=== PATIENT | female | born 2000 | race Two or more races ===

== ENCOUNTER 2024-09-07 11:25 | Observation (INO) | payer MEDICAID, SELFPAY ==
[2024-09-07 11:42] VITALS: BP 116/69; PULSE 93
[2024-09-07 11:50] VITALS: BMI 30.1
[2024-09-07 12:28] VITALS: BP 110/74; PULSE 86
[2024-09-07 12:44] LABS: Collection Type, Urine Clean Catch
[2024-09-07 12:58] VITALS: BP 107/69; PULSE 81
[2024-09-07 13:00] LABS: Bacteria,Urine 1+; Bilirubin,Urine Negative (Negative); Blood,Urine 3+ (Negative); Color,Urine Yellow (Lt Yel-Yel); Glucose, Urine Negative (Negative); Ketones,Urine Negative (Negative); Leukocyte Esterase,Urine Positive (Negative); Nitrite,Urine Positive (Negative); PH,Urine 6.5 (5.0-7.0); Protein,Urine Negative (Neg - Trace); RBC,Urine 37 /hpf (0-3); Specific Gravity,Urine 1.011 (1.001-1.035); Squamous Epithelial Cell,Urine 6 /hpf (0-5); WBC,Urine 47 /hpf (0-5)
[2024-09-07 13:11] LABS: Clarity,Urine Hazy (Clear/Hazy)
--- NOTE | 2024-09-07 13:25 | PC.NURSE ---
09/07/2024 @ 7488 PRESCRIPTION ORDERS FOR KEFLEX 500 MG PO BID X7 DAYS VIA TELEPHONE CALLED TO PATIENT'S PREFERRED PHARMACY [facility] IN [place].
[2024-09-07] MEDS: cephALEXin 250 MG CAPSULE 500 MG PO (13:36)
== END 2024-09-07 13:45 | disposition home or self-care (01) ==
PROVIDERS: Admitting Provider Obstetrics & Gynecology; Visit Provider Obstetrics & Gynecology
DX: O46.93 Antepartum hemorrhage, unspecified, third trimester (principal); Z3A.35 35 weeks gestation of pregnancy
CPT/HCPCS: 59025; 59899; 81001; A9270

== ENCOUNTER 2024-09-26 15:57 | Outpatient (CLI) | payer MEDICAID, SELFPAY ==
[2024-09-26] VITALS (7 sets, daily range): BP systolic 112; BP diastolic 67; PULSE 86–92; RESP 18–97; TEMP 37; O2SAT 97–98; BMI 31.1
--- NOTE | 2024-09-26 16:25 | XR_ITS ---
Examination: Biophysical profile, ultrasound Date and time of exam: September 26, 2024 1636 hrs. Indications: Diagnosis cholestasis of Technique: Multiple transabdominal sonographic images of the pelvis abdomen obtained. Attention is directed to the breathing movement, gross body movement, amniotic fluid volume and tone. Findings: Amniotic fluid index 9.9 cm Total biophysical profile is 8 of 8. breathing movement is 2. Gross body movement is 2. tone is 2. Qualitative amniotic fluid volume is 2 Impression: Biophysical profile is 8 of 8.
--- NOTE | 2024-09-26 17:04 | PC.NURSE ---
Patient discharged home with self. Vitals WNL, NST reactive, BPP 04/29. Discharge instructions reviewed with patient including labor signs, precautions and reasons to return to hospital. Patient instructed to follow up with hospital for labor induction, tentatively scheduled for 09/27/24 and or follow up with OB at next scheduled appt on 09/29/24. Patient verbalizes understanding, all questions answered and encouraged.
== END 2024-09-26 17:05 | disposition home or self-care (01) ==
LOC: CNST 15:59 → S4SX 16:00
PROVIDERS: Referring Provider Nurse Practitioner Women's Health; Visit Provider Nurse Practitioner Women's Health
DX: Z34.83 Encounter for supervision of other normal pregnancy, third trimester (principal); Z36.9 Encounter for antenatal screening, unspecified; Z3A.38 38 weeks gestation of pregnancy
CPT/HCPCS: 59025; 76819

== ENCOUNTER 2024-09-28 12:57 | Outpatient (CLI) | payer MEDICAID, SELFPAY ==
[2024-09-28] VITALS (8 sets, daily range): BP systolic 108; BP diastolic 62; PULSE 81–92; RESP 18–99; TEMP 36.9; O2SAT 96–98; BMI 30.7
--- NOTE | 2024-09-28 13:00 | XR_ITS ---
Examination: Biophysical profile, ultrasound Date and time of exam: September 28, 2024 1303 hours INDICATIONS: Diagnosis cholestasis of , secondary diagnoses preinduction, unknown presentation Technique: Multiple transabdominal sonographic images of the pelvis abdomen obtained. Attention is directed to the breathing movement, gross body movement, amniotic fluid volume and tone. Findings: Amniotic fluid index 11.5 cm Total biophysical profile is 8 of 8. breathing movement is 2. Gross body movement is 2. tone is 2. Qualitative amniotic fluid volume is 2 Impression: Biophysical profile is 8 of 8.
== END 2024-09-28 13:55 | disposition home or self-care (01) ==
LOC: S4S1 12:58 → S4SX 12:58
PROVIDERS: Referring Provider Nurse Practitioner Women's Health; Visit Provider Nurse Practitioner Women's Health
DX: O26.643 Intrahepatic cholestasis of pregnancy, third trimester (principal); K83.1 Obstruction of bile duct; Z3A.38 38 weeks gestation of pregnancy
CPT/HCPCS: 76819

== ENCOUNTER 2024-10-01 21:00 | Inpatient (IN) | payer MEDICAID, SELFPAY ==
[2024-10-01] VITALS (32 sets, daily range): BP systolic 115; BP diastolic 70; PULSE 79–105; O2SAT 89–99; BMI 31.7
--- NOTE | 2024-10-01 22:47 | ESHP_ITS ---
Documentation for date of: 10/01/24 OB Labor/Induct. HPI History of Present Illness : 2 Term pregnancies: 1 pregnancies: 0 Living children: 1 History of Abortions: Spontaneous and Elective: 0 History of sections: No History of : No History of present illness: 24 yo at 39+2 presents for IOL for cholestasis. notable for 1) Cholestasis with elevated BA and abnormal LFT, last BA 7.9 No OB concerns. No contractions, LOF, VB. Normal movement. History of Present Adequate Care: No Labs Narrative: PNL scanned into chart Notable for Rh positive HIV negative HepBsAg negative GBS negative Review of Systems Review of Systems Narrative Review of Systems: negative Past Medical History Surgical History SURGICAL: Negative Section Past Medical History Comments PMH COMMENT: No past medical history of surgical history Meds Home Medications and Allergies Home Medications ?Medication ?Instructions ?Recorded ?Confirmed ?Type vitamin-ferrous fumarate 1 tab PO QDAY 07/03/21 10/01/24 History 28 mg iron-folic acid 800 mcg tablet ( Tablet) ursodiol 300 mg capsule 300 mg PO QDAY 09/07/24 10/01/24 History Allergies Allergy/AdvReac Type Severity Reaction Status Date / Time No Known Allergies Allergy Verified 10/01/24 21:23 OB Exam Physical Exam Vital signs: Pulse BP Pulse Ox 79 115/70 99 10/01/24 21:28 10/01/24 21:28 10/01/24 22:44 Narrative: GEN: NAD RESP normal work of breathing ABD gravid non tender SVE: closed/long/high FHT: Reactive, no decelerations [place]: irregular OB Assessment & Plan Assessment and Plan (1) Normal labor and delivery: Status: Acute Assessment and plan: Admit for IOL at 39+2 for cholestasis - Start routine induction, likely with misoprostol for cervical ripening - Cholestasis: repeat LFTs on admission, continue Actigall for symptomatic relief - FWB: continuous monitoring for cholestasis, complete US ordered - GBS negative - PPH risk: low Tanna Wright MD
[2024-10-01 23:04] LABS: Basophils % (Auto) 0 % (0-2.5); Eosinophils # (Auto) 0.1 Thou/mm3 (0.0-0.5); Eosinophils % (Auto) 1 % (0-10); Hematocrit 35.9 % (36.0-46.0); Hemoglobin 12.4 g/dL (12.0-16.0); Immature Granulocytes % (Auto) 0 % (0-0); Immature Granulocytes Auto 0.04 Thou/mm3 (0.00-0.00); Lymphocytes # (Auto) 1.8 Thou/mm3 (1.0-4.8); Lymphocytes % (Auto) 19 % (10-50); Mean Corpuscular HGB Conc 34.5 g/dl (31.0-37.0); Mean Corpuscular Hemoglobin 30.4 pg (25.0-35.0); Mean Corpuscular Volume 88 fL (80-100); Monocytes # (Auto) 0.4 Thou/mm3 (0.0-0.8); Monocytes % (Auto) 5 % (0-12); Neutrophils # (Auto) 7.2 Thou/mm3 (1.8-7.7); Neutrophils % (Auto) 76 % (37-80); Nucleated Red Blood Cell % 0 /100 WBC (0); Platelet Count 185 Thou/mm3 (140-440); RDW Standard Deviation 43.7 fL (36.4-46.3); Red Blood Count 4.08 Miln/mm3 (4.00-5.20); White Blood Count 9.6 Thou/mm3 (3.6-11.0)
[2024-10-01 23:26] LABS: Alanine Aminotransferase 27 U/L (10-49); Albumin, Serum 4.2 gm/dL (3.5-5.0); Albumin/Globulin Ratio 1.6 (1.2-2.2); Alkaline Phosphatase 265 U/L (46-116); Anion Gap 13 (7-16); Aspartate Amino Transferase 36 U/L (0-34); BUN/Creatinine Ratio 10 Ratio (12-20); Bilirubin,Total 0.3 mg/dL (0.3-1.2); Blood Urea Nitrogen 8 mg/dL (9-23); Calcium 9.9 mg/dL (8.3-10.6); Calcium (Corrected) 9.9 mg/dL (8.5-10.1); Carbon Dioxide 22.1 mMol/L (20.0-31.0); Chloride 106 mMol/L (98-107); Creatinine (Component) 0.8 mg/dL (0.6-1.3); Globulin 2.7 gm/dL (2.3-3.5); Glucose 87 mg/dL (74-106); Osmolality,Calculated 278 (275-295); Potassium 3.8 mMol/L (3.4-5.1); Sodium 141 mMol/L (136-145); Total Protein 6.9 gm/dL (5.7-8.2); eGFR > 60 See Note
[2024-10-02] VITALS (114 sets, daily range): BP systolic 93–121; BP diastolic 54–75; PULSE 64–97; RESP 16–17; TEMP 36.6–36.8; O2SAT 92–99
--- NOTE | 2024-10-02 | XR_ITS ---
Examination: Complete OB ultrasound greater than 14 weeks Date and time of exam: October 02, 2024 0015 hrs. Indications: Labor evaluation, induction today, diagnosis cholestasis of , unknown presentation Findings: Viable intrauterine single fetus with single amniotic sac presentation cephalic spine maternal right Cardiac motion 155 BPM Placenta anterior grade 3 Umbilical cord insertion seen Amniotic fluid index 14 cm Cervix 2.7 cm Ovaries obscured by bowel gas. Composite estimated gestational age based on BPD, head circumference, abdominal circumference, femur length is 37 weeks 1 day Estimated weight 3089 g. Survey of intracranial anatomy, spinal anatomy, abdominal anatomy, four-chamber heart performed with no abnormalities identified. Impression: Viable intrauterine gestation cephalic presentation Estimated gestational age 37 weeks 1 day Estimated weight 3089 g.
[2024-10-02 01:00] LABS: Syphilis Nonreactive (Nonreactive)
[2024-10-02] MEDS: ursodioL 300 MG CAPSULE PO ×3 (01:21→18:29)
--- NOTE | 2024-10-02 01:53 | PRELIM_ITS ---
Obstetric ultrasound. October 02, 2024 at 0015 hours Clinical history: Induction.No prior study is av ailable for comparison.Findings:There is a gravid uterus with a live fetus in cephalic presentation, spine to the maternal right, of mean gestational age 37 weeks and 1 day. cardiac activity is pr esent at a heart rate of 155 beats per minute. The placenta is anterior in location, maturity grade 3 . There is no evidence of placenta previa or retroplacental hemorrhage. Amniotic fluid index is 14 cm . Estimated weight is 3089 grams+/- 457 grams. The cervical length measures 2.7 cm without fun neling. The ovaries are not visualized.Impression:Gravid uterus with a single live fetus in cephalic presentation of mean gestational age 37 weeks and 1 day. Report Electronically Signed By: Polo ham 10/02/2024 1:52:47 AM [EST]
[2024-10-02] MEDS: MISOPROSTOL 50 mCg TABLET PO ×4 (02:33→18:56)
[2024-10-02 04:57] LABS: Amphetamine/Methamp Scrn,U Negative (Negative); Barbiturate Screen,Urine Negative (Negative); Benzodiazepines Screen,Urine Negative (Negative); Benzoylecgonine Screen, Ur Negative (Negative); Fentanyl Screen,Urine Negative (Negative); Opiate Screen,Urine Negative (Negative); THC Screen,Urine Negative (Negative)
[2024-10-02] MEDS: RINGERS LACTATED 1000 ML 1,000 ML 100 ML IV (06:47)
[2024-10-02] MEDS: fentaNYL CIT INJ 50 mCg/ML AMP 2ML IVP (08:58)
--- NOTE | 2024-10-02 09:33 | PD.LDPN ---
Documentation for date of: 10/02/24 OB Labor Progress Note Assessment and Plan Comments: 24 yo undergoing IOL for cholestasis at 39+3 - s/p misoprostol, attempted FB but cervix posterior, continue cervical ripening - FWB: continuous monitoring, Cat 1, EFW 3089 grams+/- 457 grams - Cholestasis: ASt: 36 (last 18) ALT 27 (last 29), continue Actigall for symptomatic relief - PPH risk low - Anticipate
[2024-10-03] MEDS: DINOPROSTONE 10 MG VAG.SUPP VAGINAL (01:30)
[2024-10-03] MEDS: ursodioL 300 MG CAPSULE PO ×3 (05:56→21:55)
[2024-10-03 07:10] VITALS: RESP 16; TEMP 36.8
[2024-10-03 07:18] VITALS: BP 108/63; PULSE 71
--- NOTE | 2024-10-03 10:40 | PD.LDPPPRG ---
Subjective Subjective Interval history: feeling some intermittent contractions Exam Vital Signs Temp Pulse Resp BP Pulse Ox 98.3 F 71 16 108/63 96 10/03/24 07:10 10/03/24 07:18 10/03/24 07:10 10/03/24 07:18 10/02/24 07:09 Objective Labs 10/01/24 21:40 10/01/24 21:40 Assessment & Plan Problem List (1) Normal labor and delivery: Status: Acute Plan Comment Plan Comment: 24 yo undergoing IOL for cholestasis at 39+5. IOL day #2 (started 10/01) - s/p misoprostol, attempted FB (10/02) but cervix posterior, continue cervical ripening. Currently with cervidil in place. discussed next step of either FB or vaginal misoprostol is she is not ready for pitocin. - FWB: continuous monitoring, Cat 1, EFW 3089 grams+/- 457 grams. - Cholestasis: ASt: 36 (last 18) ALT 27 (last 29), continue Actigall for symptomatic relief - PPH risk low - Anticipate Time Spent With Patient Time: Total time spent is greater than 50% in coordination of care (as documented) at patient's floor/unit and/or counseling patient:
[2024-10-03 12:17] VITALS: BP 118/79; PULSE 105
[2024-10-03] MEDS: MISOPROSTOL 50 mCg TABLET PO ×3 (14:30→22:23)
[2024-10-03 17:03] VITALS: BP 121/78; PULSE 82
[2024-10-03] MEDS: fentaNYL CIT INJ 50 mCg/ML AMP 2ML 25 MCG IV (18:39)
[2024-10-03 20:21] VITALS: BP 100/62; PULSE 77
[2024-10-03 21:33] VITALS: BP 119/74; PULSE 73
[2024-10-04] VITALS (122 sets, daily range): BP systolic 93–143; BP diastolic 50–81; PULSE 55–103; RESP 18; TEMP 36.6–37.1; O2SAT 72–100
[2024-10-04] MEDS: MISOPROSTOL 50 mCg TABLET PO (02:20)
[2024-10-04] MEDS: ursodioL 300 MG CAPSULE PO (05:55)
--- NOTE | 2024-10-04 08:55 | PD.LDPN ---
Documentation for date of: 10/04/24 OB Labor Progress Note Pain Control Pain control: other (Requesting an epidural) Pelvic Exam Dilation (cm): 4 Effacement (%): 80 station: -2 Amniotic membrane status: Ruptured (AROM- clear) Contractions Monitor mode: External Contraction frequency: 2-4 Contraction duration: 40-60 Contraction phase: Contraction Contraction intensity: Moderate Status status: Category l Assessment and Plan Assessment: induction ongoing Plan OB labor note: begin Pitocin augmentation Comments: AROM - performed- clear fluids Start pitocin per protocol Updated Dr. Alcazar Anticipate
[2024-10-04] MEDS: RINGERS LACTATED 1000 ML 1,000 ML 100 ML IV ×3 (09:04→14:27)
[2024-10-04] MEDS: MINERAL OIL 30 ML UDC TOP (15:45)
[2024-10-04] MEDS: BENZO/LANO/ALOE (Dermoplast) 60 GM CAN 1 SPRAY TOP (16:00)
[2024-10-04] MEDS: OXYTOCIN in NS 20 units 20 UNIT/1,000 ML BAG 125 UNIT IV (16:00)
[2024-10-04] MEDS: TRANEXAMIC ACID 1,000 MG IVPB 1,000 MG/100 ML BAG 200 MG IV ×2 (16:10→17:36)
--- NOTE | 2024-10-04 16:17 | PD.LDDELS ---
Data ([facility]) Data Hx Section: No Maternal Blood Type: O Pos Rubella Titre: Positive RPR: Non-reactive Labs: Negative: RPR, Hepatitis B, HIV, Chlamydia, Gonorrhea and Group Beta Strep and Unknown: Herpes Type 1 and Herpes Type 2 : 2 Para: 1 Term: 1 : 0 Livin : 0 Delivery Data ([facility]) Labor Data Stimulated/Augmented: No Induction: Yes Method: Cervical Ripening Balloon (Cervidil, cytotec x2 ) ROM Date: 10/04/24 ROM Time: 08:50 Rupture Type: AROM Amniotic Fluid: Clear Delivery Data EDC: 10/06/24 EDC calculated by:: LMP/early US confirmation Labor Onset Stage 1 Date: 10/04/24 Labor Onset Stage 1 Time: 15:13 Labor Onset Stage 2 Date: 10/04/24 Labor Onset Stage 2 Time: 15:40 Delivery Date: 10/04/24 Delivery Time: 15:54 Gestational age (weeks): 39 Gestational age (days): 5 Placenta Delivery Date: 10/04/24 Placenta Delivery Time: 16:01 Delivered by: Susanna Ruiz Delivery nurse: Lori Hubbard Ground Source Heat Pump Technician at delivery: No Support person(s) at delivery: FOB Other staff at delivery: Nursery Nurse Other staff at delivery: Juliana Regalado Delivery Method Delivery: Vaginal Delivery Type: Spontaneous Presentation: Vertex Position: OA Anesthesia Type Primary Anesthesia: Epidural Secondary Anesthesia: None Delivery Room Medications Other Intrapartum Medications: No Post Delivery Medications N/A: No Placenta Placenta Delivery: Spontaneous Placenta Cultures Obtained: No Placenta Sent for Examination: No Episiotomy Episiotomy: None Lacerations #1: Perineal: 1st degree Labial: Right labial and right sulcus Perineal repair Sutures used for repair: 3.0 Vicryl (CT x2) EBL Estimated blood loss (ml): 300 Umbilical Cord Umbilical Vessels: 3 Nuchal Cord: Not Applicable Body Cord: Not Applicable Additional Procedures After pushing for half an hour patient had an of a viable male infant. Infant's anterior shoulder delivered with gentle downward traction subsequent deliver the posterior shoulder and the body without complications. placed on mother's abdomen. Vigorous cry upon delivery. Cord was clamped. Cut by FOB. Cord blood obtained. Three-vessel cord noted. Placenta expelled spontaneously and intact. Patient sustained a right labial laceration and a right sulcus laceration along with a first-degree perineal laceration all repaired using a 3-[address] suture x 2. Excellent hemostasis achieved after vigorous fundal massage and removal of clots from the posterior fornix. Patient was given TXA x 2. And IV Pitocin. EBL 300. Sponge and needle count correct. Mother and baby stable, skin to skin and bonding in LDR. [place] Data ([facility]) Data Infant Gender: Male Weight Grams: 3650 1 Minute Total: 8 5 Minute Total: 9
[2024-10-04 22:25] LABS: Basophils # (Auto) 0.1 Thou/mm3 (0.0-0.2); Basophils % (Auto) 0 % (0-2.5); Eosinophils % (Auto) 0 % (0-10); Hematocrit 31.4 % (36.0-46.0); Hemoglobin 10.7 g/dL (12.0-16.0); Immature Granulocytes % (Auto) 0 % (0-0); Immature Granulocytes Auto 0.04 Thou/mm3 (0.00-0.00); Lymphocytes # (Auto) 1.6 Thou/mm3 (1.0-4.8); Lymphocytes % (Auto) 10 % (10-50); Mean Corpuscular HGB Conc 34.1 g/dl (31.0-37.0); Mean Corpuscular Hemoglobin 30.7 pg (25.0-35.0); Mean Corpuscular Volume 90 fL (80-100); Monocytes # (Auto) 0.7 Thou/mm3 (0.0-0.8); Monocytes % (Auto) 5 % (0-12); Neutrophils # (Auto) 12.7 Thou/mm3 (1.8-7.7); Neutrophils % (Auto) 84 % (37-80); Nucleated Red Blood Cell % 0 /100 WBC (0); Platelet Count 151 Thou/mm3 (140-440); RDW Standard Deviation 45.9 fL (36.4-46.3); Red Blood Count 3.48 Miln/mm3 (4.00-5.20); White Blood Count 15.1 Thou/mm3 (3.6-11.0)
[2024-10-05] VITALS: BP 114/71; PULSE 71; RESP 19; TEMP 36.7; O2SAT 98
[2024-10-05 04:06] VITALS: BP 113/71; PULSE 71; RESP 20; TEMP 36.7; O2SAT 97
--- NOTE | 2024-10-05 07:19 | ESDS_ITS ---
DS: Providers Provider Date of admission: 10/01/24 21:00 Primary care physician: Physician No Primary/Family Admitting Provider: Tanna Wright MD Attending Provider on Admission: Kimberly Alcazar MD Attending Provider on DC: Susanna Ruiz CNM Discharging Provider: Susanna Ruiz CNM Anticipated date of discharge: 10/05/24 DS: Diagnosis Discharge Diagnosis (1) Normal spontaneous vaginal delivery: Status: Acute (2) care following vaginal delivery: Status: Acute (3) Encounter for induction of labor: Status: Acute (4) Cholestasis during in third trimester: Status: Acute Problem List Completed Was Problem List Reviewed/Reconciled?: Yes Summary/Hosp Course Brief History: 24 yo at 39+2 presents for IOL for cholestasis. notable for 1) Cholestasis with elevated BA and abnormal LFT, last BA 7.9 No OB concerns. No contractions, LOF, VB. Normal movement. 10/04/2024: After pushing for half an hour patient had an of a viable male . Infant's anterior shoulder delivered with gentle downward traction subsequent deliver the posterior shoulder and the body without complications. Infant placed on mother's abdomen. Vigorous cry upon delivery. Cord was clamped. Cut by FOB. Cord blood obtained. Three-vessel cord noted. Placenta expelled spontaneously and intact. Patient sustained a right labial laceration and a right sulcus laceration along with a first-degree perineal laceration all repaired using a 3-[address] suture x 2. Excellent hemostasis achieved after vigorous fundal massage and removal of clots from the posterior fornix. Patient was given TXA x 2. And IV Pitocin. EBL 300. Sponge and needle count correct. Mother and baby stable, skin to skin and bonding in LDR. 10/05/24: PPD#1 patient is stable and afebrile. Doing well and . Denies dizziness shortness of breath. No complaints. Discharge instructions given. Patient to follow-up with Susanna Ruiz CNM in 3 weeks Peripartum Data Delivery Method: Normal Vaginal Delivery Episiotomy Description: None Laceration Description: yes and see Delivery Summary complications: none [place] 1: Gender: Male Disposition of : home Status at Discharge Cognitive/behavioral status at discharge: Alert and oriented x 3 Functional status at discharge: independent ambulation Overall status at discharge: patient is progressing back to baseline Time Spent with Patient Time attestation: Total time spent providing and/or coordinating discharge services: Time spent: Greater than 30 minutes Exam Vital Signs Temp Pulse Resp BP Pulse Ox 98.8 F 102 H 18 133/59 H 91 L 10/04/24 07:00 10/04/24 16:16 10/04/24 07:00 10/04/24 16:16 10/04/24 15:52 Constitutional Constitutional: no acute distress Routine HEENT Exam Head: Present normocephalic and atraumatic Eye: Present EOMI, PERRL and normal accommodation ENT: Present mucous membranes moist Routine Neck Exam Neck: Present supple, full ROM and trachea midline Routine Respiratory Exam Respiratory: Present chest non-tender, lungs clear, normal breath sounds and no resp distress Routine Cardiovascular Exam Cardiovascular: Present RRR Routine Abdominal Exam Abdominal: Present soft and normoactive bowel sounds; Absent tenderness or distended Comments: Uterus nontender Fundus firm Routine Exam Patient deferred: external exam Routine Extremities Exam Extremities: Present full ROM, pulses intact and normal capillary refill; Absent calf tenderness or tenderness Routine Back/Spine/Pelvis Exam Back/Spine: Present full ROM Routine Skin Exam Skin: Present intact, dry and warm Routine Neurological Exam Neurological: Present alert, oriented X3 and CN II-XII intact Routine Psychiatric Exam Psychiatric: Present normal affect and normal thought process Discharge Plan Plan Patient Disposition: HOME (Self Care) Patient condition on transfer: Stable Prescriptions/Referrals Prescriptions/Med Rec: New ibuprofen 800 mg tablet 800 mg PO Q6H MDD 4 PRN (Reason: pain) Qty: 120 0RF docusate sodium [Colace] 100 mg capsule 100 mg PO BID Qty: 60 0RF lanolin 50 % ointment 1 applic topical TID PRN (Reason: skin irritation) Qty: 15 0RF Continued vit-iron fum-folic ac [ Tablet] 28 mg iron- 800 mcg tablet 1 tab PO QDAY Patient Comments: take 1 tablet by mouth once daily Discontinued ursodiol 300 mg capsule 300 mg PO TID Referrals: No Primary/Family,Physician [Primary Care Provider] - Patient/Caregiver Discharge Instructions Meds to Beds: No Discharge Activity: activity as tolerated Other Discharge Activity Instructions:: Follow-up with Gege Ruiz CNM in 3 weeks Education Materials: After a Vaginal , After Delivery Concerns, : Caring for Yourself Print Language: Kinyarwanda Stand Alone Forms: Pooja Award Info., Patient Portal Info Letter Discharge Order Discharge Orders: Discharge (Routine); Ordered 10/05/24 Ordered By: Suasnna Ruiz Planned Discharge Date 10/05/24
[2024-10-05 07:45] VITALS: BP 113/71; PULSE 66; RESP 17; TEMP 36.8; O2SAT 99
[2024-10-05] MEDS: DOCUSATE SOD 100 MG CAPSULE PO (08:04)
--- NOTE | 2024-10-05 10:00 | PC.NURSE ---
cleared by Shailesh in secondary social studies teacher
[2024-10-05 11:10] VITALS: BP 115/69; PULSE 78; RESP 18; TEMP 36.9; O2SAT 99
--- NOTE | 2024-10-05 11:49 | PC.SS ---
PARACHUTE CUSHION INSTALLER conducted bedside contact with the patient to address nursing referral indicating patient was inconsistent with OB appointments. PARACHUTE CUSHION INSTALLER introduced self and role. Present with patient was Franky BOYCE. Patient gave permission for FOB to be present during discussion. PARACHUTE CUSHION INSTALLER informed patient of the basis of the referral. Patient denied inconsistency with OB appointments. Patient informed PARACHUTE CUSHION INSTALLER that OB services provided by Susanna Ru[facility] and that patient was also conducting health educator appointments with Cheri from [facility]. , Alber; is the patient?s second child. Other child is 2 yrs old. Patient is aligned with WIC, SNAP nor TANF. Patient denies history of alcohol/drug abuse. Patient denies CWS intervention. Patient denies episodes of domestic violence. OB services provided by Susanna Ruiz. Infant delivered naturally. Patient plans on bottle feeding the . Patient has access to appropriate supplies and equipment; to include a car seat. FOB will provide transportation upon discharge. Patient describes possessing support system consisting of FOB and mother. PARACHUTE CUSHION INSTALLER provided the patient with community resources to include Warm Line. No further intervention required at this time, manager social responsibility will be available to address any further concerns. PARACHUTE CUSHION INSTALLER updated bedside nurse.
[2024-10-05 15:15] VITALS: BP 111/70; PULSE 69; RESP 18; TEMP 36.7; O2SAT 97
[2024-10-07 17:51] LABS: Chenodeoxycholic Acid* 2.8 umol/L (< OR = 3.9); Cholic Acid* 1.7 umol/L (< OR = 2.8); Deoxycholic Acid* 0.6 umol/L (< OR = 2.3)
[2024-10-08 07:04] LABS: Total Bile Acids 5.1 umol/L (< OR = 8.3)
== END 2024-10-05 16:40 | disposition home or self-care (01) | DRG 560 ==
LOC: S4SX 10-04 16:24 → S4NX 10-04 18:18
PROVIDERS: Nurse Practitioner Women's Health; Admitting Provider Obstetrics & Gynecology; Visit Provider Student in an Organized Health Care Education/Training Program
DX: O26.643 Intrahepatic cholestasis of pregnancy, third trimester (principal); Z3A.39 39 weeks gestation of pregnancy; Z37.0 Single live birth; O70.0 First degree perineal laceration during delivery; E78.79 Other disorders of bile acid and cholesterol metabolism; K76.89 Other specified diseases of liver
CPT/HCPCS: 36415; 59409; 76805; 80053; 80307; 83789; 85025; 86780; 86850; 86900; 86901; 94762; J2590; J2795; J3010; J3490; J7120; A9270

== ENCOUNTER 2025-06-08 09:45 | Outpatient (AMB) | payer MEDICAID, SELFPAY ==
[2025-06-08 10:00] VITALS: BP 121/75; PULSE 81; RESP 16; TEMP 36.7; O2SAT 98; BMI 29.9
--- NOTE | 2025-06-08 10:00 | AMB.OBINITIA ---
Vital Signs 06/08/25 10:00 Height 1.65 m Height Method Stated Weight 81.817 kg Weight Measurement Method Standing Scale BMI 29.9 BP 121/75 Blood Pressure Source Automatic Cuff Blood Pressure Location Left Upper Arm Position Sitting Respiration 16 Pulse 81 Pulse Source Monitor Temp 98.1 F Temp Source Oral Pulse Oximetry (%) 98 Oxygen Delivery Method Room Air Allergies/Home Meds Allergies & Medications Allergies No Known Allergies Allergy (Verified 06/08/25 10:01) Medication Reconciliation vitamin-ferrous fumarate 28 mg iron-folic acid 800 mcg tablet ( Tablet) 1 tab PO QDAY 07/03/21 [History Confirmed 06/08/25] doxylamine 10 mg-pyridoxine (vit B6) 10 mg tablet,delayed release (Diclegis) 1 tab PO BID 30 days #60 tabs 06/08/25 [Rx] doxylamine 10 mg-pyridoxine (vit B6) 10 mg tablet,delayed release (Diclegis) 1 tab PO BID 30 days #60 tabs 06/08/25 [Rx] vitamin-ferrous fumarate 28 mg iron-folic acid 800 mcg tablet ( Vitamins with Minerals) 1 tab PO QDAY #60 tabs 06/08/25 [Rx] Intake Visit Data Collection New Patient or Established: Established Patient (seen at [facility] within 3 years) Reason for Visit:: INITIAL CARE Seen by Clinical Staff ONLY (RN/MA): No Security Systems Engineer Required: No Do You Feel Safe at Home: Yes Authorities Contacted: N/A PCP or OBGYN visit in last 3 months: Yes Hx Now: Yes Are you currently on any form of Control: No Last menstrual period: 04/16/25 Pain Present Currently: No Pain Scale Used: Silva-Bates/Numerical Pain scale:: 0 Smoking Status Smoking Status: Never smoker Questionnaires Covid-19 Vaccine Questionnaire Has patient been vacinated for Covid-19 Have you been vacinated for Covid-19: Yes PHQ-9 PHQ-2 Over the last 2 weeks, how often have you been bothered by any of the following problems? 1. Little interest or pleasure in doing things: not at all 2. Feeling down, depressed, or hopeless: not at all Total score: 0 PHQ-9 3. Trouble falling or staying asleep, or sleeping too much: Not at all 4. Feeling tired or having little energy: Not at all 5. Poor appetite or overeating: Not at all 6. Feeling bad about yourself - or that you are a failure or have let yourself or your family down: Not at all 7. Trouble concentrating on things, such as reading the newspaper or watching television: Not at all 8. Moving or speaking so slowly that other people could have noticed? - Or the opposite - being so fidgety or restless that you have been moving around a lot more than usual: not at all 9. Thoughts that you would be better off or of hurting yourself in some way: Not at all Total score: 0 Source: Developed by Drs. Jamel Muhammad, Miladis Gottlieb, Yasmany Weinstein and colleagues, with an educational zbigniew from [employer]). 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 LMP is 04/16/2025. EDC January 21, 2025. Patient complains of nausea. She also complains of feeling tired and no energy. Denies SAB complaints. OB panel with A1c, schedule MFM for NT, discuss SAB precaution. comfort measure for N/V, Diclegesis as needed for nausea, refill PNV, rtc 4 week Menstrual History Menstrual reliability: definite Flow: normal Menstrual regularity: regular Monthly: Yes Age at menarche: 15 On control pills at conception: No Associated symptoms (LMP): Reports breast tenderness OB History : 3 Para: 2 # of Living Children: 2 Delivery History 1st : Child's name: HYUN date: 10/30/21 sex: female Gestational age at delivery (weeks): 40 Delivery type: vaginal Delivery complications: NONE History of depression before or after : No 2nd : Child's name: ADONAY date: 10/04/21 sex: male Gestational age at delivery (weeks): 40 Delivery type: vaginal Delivery complications: NONE History of depression before or after : No Infection History & Risk Evaluation History of STDs: none Genetic Screening & History Genetic Screening/Teratology Counseling - Includes patient, baby's father, or anyone in either family with: 1. Patient's age 35 years or older as of estimated date of delivery: No 2. Thalassemia (Bulgarian, Romansh, Mediterranean, or Background); MCV less than 80: No 3. Neural Tube Defect (Meningomyelocele, Spina Bifida, or Anencephaly): No 4. Congenital Heart Defect: No 5. Down Syndrome: No 6. Stanley-Sachs (Ashkenazi Zoroastrianism, Cajun, Gambian Pakistani): No 7. Jeanette Disease (Ashkenazi Zoroastrianism): No 8. Familial Dysautonomia (Ashkenazi Zoroastrianism): No 9. Sickle Cell Disease or Trait (): No 10. Hemophilia or other blood disorders: No 11. Muscular Dystrophy: No 12. Cystic Fibrosis: No 13. [place]'s Chorea: No 14. Mental Retardation/Autism: No 15. Other inherited genetic or chromosomal disorder: No 16. Maternal Metabolic Disorder (EG,TYPE 1 Diabetes, PKU): No 17. Patient or baby's father had a child with defects not listed above: No 18. Recurrent loss or a stillbirth: No 19. Medications (including supplements, vitamins, herbs or otc drugs)/illicit/recreational drugs/alcohol since last menstrual period: No 20. Any other: No Infection History 1. Live with someone with TB or exposed to TB: No 2. Rash or viral illness since last menstrual period: No 3. Hepatitis B,C: No Other (see comments) Source: [employer] Review of Systems Review of Systems Systems Reviewed: All systems reviewed, normal except as documented Exam General Limitations: no limitations General Appearance: alert, in no apparent distress, comfortable, cooperative, healthy appearing, well developed and well groomed Head Head exam: atraumatic, normocephalic and normal inspection Eye Eye exam: Present normal appearance, PERRL and EOMI ENT ENT exam: Present normal exam, normal oropharynx and mucous membranes moist Neck Neck exam: Present normal inspection, full ROM and trachea midline Chest Chest inspection: Present normal inspection and symmetric chest wall rise Resp Respiratory exam: Present normal lung sounds bilaterally Card Cardiovascular exam: Present regular rate, normal rhythm and normal heart sounds Abdominal Abdominal exam: Present soft and normal bowel sounds Extremities Extremities exam: Present normal inspection and full ROM Back Back exam: Present normal inspection and full ROM Neuro Neurological exam: Present alert, oriented X3 and CN II-XII intact Psych Psychiatric exam: Present normal affect and normal mood Skin Skin exam: Present warm, dry, intact and normal color Office Procedures OB Clinic LOC & Office Proc's Nursing/Assessment Patient Status: Established Patient OB Clinic Nursing Assessment: Medication Reconciliation, Update PMH in EMR and Vital Signs OB Clinic Coordination of Care: Complex Care and Chronic Disease 1-5, Consent,records obtained, informed consent, Education Simp Pt/Fam, 1 Ins Authorization, Lab and Imaging orders, Results/Orders obtained and Staff clarify orders Special Needs: Heart tones Established Patient Charge Established Patient Point Assignment: 150 Established Patient Point Charge: EP Level 4 (120-155) Assessment & Plan Diagnosis / Problem List (1) Encounter for supervision of high risk in first trimester, antepartum: Status: Acute Plan I ordered vitamins and Diclegis for nausea. Discussed comfort measures for the nausea and tiredness the patient was having. Schedule NT scan with Dr. Valencia. OB panel hemoglobin A1c today. Discussed SAB precautions and return in 4 weeks for NIPT and carrier screens Additional Plan Follow Up: 4 Weeks (obc)
== END 2025-06-08 10:25 | disposition home or self-care (01) ==
PROVIDERS: Supervising Provider Advanced Practice Midwife; Visit Provider Advanced Practice Midwife
DX: O09.91 Supervision of high risk pregnancy, unspecified, first trimester (principal); Z3A.01 Less than 8 weeks gestation of pregnancy
CPT/HCPCS: 99214; G0463

== ENCOUNTER 2025-07-18 11:03 | Outpatient (AMB) | payer MEDICAID, SELFPAY ==
[2025-07-18 11:48] VITALS: BP 124/78; PULSE 81; RESP 16; TEMP 36.4; O2SAT 98; BMI 29.4
--- NOTE | 2025-07-18 11:48 | OBCLNT_ITS ---
Vital Signs 07/18/25 11:48 Height 1.65 m Height Method Stated Weight 80.059 kg Weight Measurement Method Standing Scale BMI 29.4 BP 124/78 Blood Pressure Source Automatic Cuff Blood Pressure Location Left Upper Arm Position Sitting Respiration 16 Pulse 81 Pulse Source Monitor Temp 97.6 F Temp Source Oral Pulse Oximetry (%) 98 Oxygen Delivery Method Room Air Allergies/Home Meds Allergies & Medications Allergies No Known Allergies Allergy (Verified 07/18/25 11:49) Medication Reconciliation vitamin-ferrous fumarate 28 mg iron-folic acid 800 mcg tablet ( Tablet) 1 tab PO QDAY 07/03/21 [History Confirmed 07/18/25] doxylamine 10 mg-pyridoxine (vit B6) 10 mg tablet,delayed release (Diclegis) 1 tab PO BID 30 days #60 tabs 06/08/25 [Rx Confirmed 07/18/25] doxylamine 10 mg-pyridoxine (vit B6) 10 mg tablet,delayed release (Diclegis) 1 tab PO BID 30 days #60 tabs 06/08/25 [Rx Confirmed 07/18/25] nitrofurantoin monohydrate/macrocrystals 100 mg capsule (Macrobid) 100 mg PO BID 7 days #14 caps 07/18/25 [Rx] vitamin-ferrous fumarate 28 mg iron-folic acid 800 mcg tablet ( Vitamins with Minerals) 1 tab PO QDAY #60 tabs 07/18/25 [Rx] Intake Visit Data Collection New Patient or Established: Established Patient (seen at [facility] within 3 years) Reason for Visit:: CARE Seen by Clinical Staff ONLY (RN/MA): No Nuclear Station Operator Required: No Do You Feel Safe at Home: Yes Authorities Contacted: N/A PCP or OBGYN visit in last 3 months: Yes Hx Now: Yes Are you currently on any form of Control: No Pain Present Currently: No Pain Scale Used: Silva-Bates/Numerical Pain scale:: 0 Smoking Status Smoking Status: Never smoker Immunizations Flu Vaccine in the Last 12 Months: No Flu Vaccine Exclusion Criteria: Refused by Patient Questionnaires Covid-19 Vaccine Questionnaire Has patient been vacinated for Covid-19 Have you been vacinated for Covid-19: Yes PHQ-9 PHQ-2 Over the last 2 weeks, how often have you been bothered by any of the following problems? 1. Little interest or pleasure in doing things: not at all 2. Feeling down, depressed, or hopeless: not at all Total score: 0 PHQ-9 3. Trouble falling or staying asleep, or sleeping too much: Not at all 4. Feeling tired or having little energy: Not at all 5. Poor appetite or overeating: Not at all 6. Feeling bad about yourself - or that you are a failure or have let yourself or your family down: Not at all 7. Trouble concentrating on things, such as reading the newspaper or watching television: Not at all 8. Moving or speaking so slowly that other people could have noticed? - Or the opposite - being so fidgety or restless that you have been moving around a lot more than usual: not at all 9. Thoughts that you would be better off or of hurting yourself in some way: Not at all Total score: 0 Source: Developed by Drs. Jamel Muhammad, Miladis Gottlieb, Yasmany Weinstein and colleagues, with an educational zbigniew from [employer]. 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 LMP is 04/16/2025. EDC January 21, 2025. Patient complains of nausea. She also complains of feeling tired and no energy. Denies SAB complaints. OB panel with A1c, schedule MFM for NT, discuss SAB precaution. comfort measure for N/V, Diclegesis as needed for nausea, refill PNV, rtc 4 week 07/18/25 -?-?-?-?-?-?-?-?-?-?-?-?- 13w 2d 80.059 kg 124/78 absent unknown 13 135 absent No SAB complaints. Denies nausea and vomiting. No bleeding NIPT and carrier screens today. Patient was scheduled for her anatomy scan in August. Discussed SAB precautions. aFP next visit. Return in 4 weeks SABRINA Calculator Estimated Delivery Date Method Current WG Current Estimate 01/21/26 LMP (Certain) 13w 2d Notes Visit Date: 07/18/25 Last Updated by: Candy Foley CNM OB panel: UT-,HBSAG-,HIV-,HC-,RPR::NR, rub imm, GC/CT-, O+,ABS-, /279, + UTI, A1c: 5.3 Visit Date: 06/08/25 Last Updated by: Candy Foley CNM 24 yo . LMP: 04/16/25. EDC: 01/21/25 Office Procedures OBC Clinic LOC & Office Proc's Nursing/Assessment Patient Status: Established Patient OB Clinic Nursing Assessment: Medication Reconciliation, Update PMH in EMR and Vital Signs OB Clinic Coordination of Care: Complex Care and Chronic Disease 1-5, Consent,records obtained, informed consent, Education Simp Pt/Fam, Lab and Imaging orders, Results/Orders obtained and Staff clarify orders Special Needs: Heart tones Established Patient Charge Established Patient Point Assignment: 135 Established Patient Point Charge: EP Level 4 (120-155) Assessment & Plan Diagnosis / Problem List (1) Encounter for supervision of high risk in first trimester, antepartum: Status: Acute Plan aFP next visit. Maternal- medicine ultrasound in August. Patient is doing NIPT and carrier screen today. Refill prenatals to [facility]. Return in 4 weeks OB check Additional Plan Follow Up: 4 Weeks (obc)
== END 2025-07-18 12:00 | disposition home or self-care (01) ==
LOC: HODSOBC 11:03
PROVIDERS: Supervising Provider Advanced Practice Midwife; Visit Provider Advanced Practice Midwife
DX: O09.91 Supervision of high risk pregnancy, unspecified, first trimester (principal); Z3A.13 13 weeks gestation of pregnancy
CPT/HCPCS: 99214; G0463

== ENCOUNTER 2025-07-31 17:05 | Emergency (ER) | payer MEDICAID, SELFPAY ==
[2025-07-31 17:45] VITALS: BP 116/71; PULSE 73; RESP 19; TEMP 36.9; O2SAT 99
[2025-07-31 17:52] VITALS: BMI 29.2
--- NOTE | 2025-07-31 17:57 | XR_ITS ---
Examination: Complete OB ultrasound greater than 14 weeks Date and time of exam: July 31, 2025, 1818 hours INDICATIONS: Vaginal bleeding beginning 2 days ago. Findings: Viable intrauterine single fetus with single amniotic sac presentation breech Cardiac motion 150 bpm Placenta anterior grade 1 Umbilical cord insertion seen Amniotic fluid index adequate Cervix 3.8 cm Ovaries obscured by bowel gas. Composite estimated gestational age based on BPD, head circumference, abdominal circumference, femur length is 14 weeks 2 days Estimated weight 94 g. Survey of intracranial anatomy, spinal anatomy, abdominal anatomy, four-chamber heart performed with no abnormalities identified. Impression: Viable intrauterine gestation in breech presentation.
--- NOTE | 2025-07-31 17:58 | PD.EDRME ---
Rapid Medical Screening Exam E Arrival date/time: 07/31/25 17:05 This is a 24-year-old female that comes into the emergency room with complaints of vaginal bleeding that started last night. Patient has some mild abdominal cramping. Patient states she is approximately 15 weeks . Patient's last menstrual period was April 16. Patient is a 3 para 2. I have greeted and performed a focused initial assessment of this patient. Initial appropriate labs ordered at this time. A comprehensive ED assessment and evaluation of the patient and analysis of all test and completion of medical decision making process will be conducted by additional ED provider. Chief Complaint: Vaginal Bleeding Time Seen by Provider: 07/31/25 17:28 Vital signs: Vital Signs Temperature 98.4 F 07/31/25 17:45 Pulse Rate 73 07/31/25 17:45 Respiratory Rate 19 07/31/25 17:45 Blood Pressure 116/71 07/31/25 17:45 Pulse Oximetry (%) 99 07/31/25 17:45 Oxygen Delivery Method Room Air 07/31/25 17:45 Exam: Alert and oriented, breathing even and unlabored skin warm and dry Clinical Impression: Vaginal bleeding
[2025-07-31 18:19] LABS: Collection Type, Urine Voided
[2025-07-31 18:37] LABS: Bacteria,Urine Rare; Bilirubin,Urine Negative (Negative); Blood,Urine Negative (Negative); Clarity,Urine Clear (Clear/Hazy); Color,Urine Colorless (Lt Yel-Yel); Glucose, Urine Negative (Negative); Ketones,Urine Negative (Negative); Leukocyte Esterase,Urine Positive (Negative); Nitrite,Urine Negative (Negative); PH,Urine 6.5 (5.0-7.0); Protein,Urine Negative (Neg - Trace); RBC,Urine 2 /hpf (0-3); Specific Gravity,Urine 1.009 (1.001-1.035); Squamous Epithelial Cell,Urine 1 /hpf (0-5); Urobilinogen,Urine Negative mg/dL (0.0-1.0); WBC,Urine 27 /hpf (0-5)
[2025-07-31 18:38] LABS: Culture Indicated,Urine Yes
[2025-07-31 19:00] LABS: Basophils # (Auto) 0.0 Thou/mm3 (0.0-0.2); Basophils % (Auto) 0 % (0-2.5); Eosinophils # (Auto) 0.1 Thou/mm3 (0.0-0.5); Eosinophils % (Auto) 1 % (0-10); Hematocrit 36.5 % (36.0-46.0); Hemoglobin 12.4 g/dL (12.0-16.0); Immature Granulocytes Auto 0.03 Thou/mm3 (0.00-0.00); Lymphocytes # (Auto) 2.0 Thou/mm3 (1.0-4.8); Lymphocytes % (Auto) 19 % (10-50); Mean Corpuscular HGB Conc 34.0 g/dl (31.0-37.0); Mean Corpuscular Hemoglobin 29.6 pg (25.0-35.0); Mean Corpuscular Volume 87 fL (80-100); Monocytes # (Auto) 0.5 Thou/mm3 (0.0-0.8); Monocytes % (Auto) 4 % (0-12); Neutrophils # (Auto) 8.0 Thou/mm3 (1.8-7.7); Neutrophils % (Auto) 75 % (37-80); Nucleated Red Blood Cell # 0.00 Thou/mm3 (0.00-0.00); Nucleated Red Blood Cell % 0 /100 WBC (0); Platelet Count 261 Thou/mm3 (140-440); RDW Standard Deviation 46.5 fL (36.4-46.3); Red Blood Count 4.19 Miln/mm3 (4.00-5.20); White Blood Count 10.7 Thou/mm3 (3.6-11.0)
[2025-07-31 19:27] LABS: Alanine Aminotransferase 29 U/L (10-49); Albumin, Serum 4.6 gm/dL (3.5-5.0); Albumin/Globulin Ratio 1.8 (1.2-2.2); Alkaline Phosphatase 65 U/L (46-116); Anion Gap 9 (7-16); Aspartate Amino Transferase 19 U/L (0-34); BUN/Creatinine Ratio 12 Ratio (12-20); Bilirubin,Total 0.3 mg/dL (0.3-1.2); Blood Urea Nitrogen 7 mg/dL (9-23); Calcium 9.7 mg/dL (8.3-10.6); Calcium (Corrected) 9.7 mg/dL (8.5-10.1); Carbon Dioxide 23.8 mMol/L (20.0-31.0); Chloride 106 mMol/L (98-107); Creatinine (Component) 0.6 mg/dL (0.6-1.3); Estimated Creatinine Clearance 152.0 mL/min (>60); Globulin 2.6 gm/dL (2.3-3.5); Glucose 88 mg/dL (74-106); Osmolality,Calculated 274 (275-295); Potassium 3.9 mMol/L (3.4-5.1); Sodium 139 mMol/L (136-145); Total Protein 7.2 gm/dL (5.7-8.2); eGFR > 60 See Note
[2025-07-31 19:46] VITALS: BP 117/63; PULSE 84; RESP 14; TEMP 37; O2SAT 99
[2025-07-31 20:32] VITALS: BP 107/64; PULSE 87; RESP 16; TEMP 36.9; O2SAT 99
--- NOTE | 2025-07-31 20:35 | PD.EDVAGBL ---
ED OB Contraction Preg RMI/HPI General Chief complaint: Vaginal Bleeding Stated complaint: VAG BLEEDING, LOWER ABD PAIN Time Seen by Provider: 07/31/25 17:28 Arrival date/time: 07/31/25 17:05 RME / HPI RME / HPI Narrative: 07/31/25 17:05 This is a 24-year-old female that comes into the emergency room with complaints of vaginal bleeding that started last night. Patient has some mild abdominal cramping. Patient states she is approximately 15 weeks . Patient's last menstrual period was April 16. Patient is a 3 para 2. I have greeted and performed a focused initial assessment of this patient. Initial appropriate labs ordered at this time. A comprehensive ED assessment and evaluation of the patient and analysis of all test and completion of medical decision making process will be conducted by additional ED provider. Dr. Todd?s Main ED Evaluation: 24yo female with EGA 15 weeks gestation, currently sees OB presenting with 24 hours of mild pelvic cramping and spotting. No fever or chills. No urgency or dysuria. Reports baseline urinary frequency. PMH unremarkable. Related Data Home Medications ?Medication ?Instructions ?Recorded ?Confirmed vitamin-ferrous fumarate 1 tab PO QDAY 07/03/21 07/18/25 28 mg iron-folic acid 800 mcg tablet ( Tablet) Previous Rx's ?Medication ?Instructions ?Recorded doxylamine 10 mg-pyridoxine (vit 1 tab PO BID 30 days #60 tabs 06/08/25 B6) 10 mg tablet,delayed release (Diclegis) doxylamine 10 mg-pyridoxine (vit 1 tab PO BID 30 days #60 tabs 06/08/25 B6) 10 mg tablet,delayed release (Diclegis) vitamin-ferrous fumarate 1 tab PO QDAY #60 tabs 07/18/25 28 mg iron-folic acid 800 mcg tablet ( Vitamins with Minerals) nitrofurantoin 100 mg PO BID #14 caps 07/31/25 monohydrate/macrocrystals 100 mg capsule (Macrobid) Allergies Allergy/AdvReac Type Severity Reaction Status Date / Time No Known Allergies Allergy Verified 07/18/25 11:49 Review of Systems Review of Systems Systems Reviewed: All systems reviewed, normal except as documented Past Medical History Past Medical History NEUROLOGIC: Negative Neurological Disorders CARDIAC: Negative Cardiac Disorders or Congestive Heart Failure RESPIRATORY: Negative Chronic Obstructive Pulmonary Disease (COPD) GASTROINTESTINAL: Negative Gastrointestinal Disorders or Hepatitis GENITOURINARY: Negative Genitourinary Disorders or Renal Disease MUSCULOSKELETAL: Negative Musculoskeletal Disorders ENDOCRINE: Negative Endocrine Disorders, Diabetes Mellitus Type 1 or Diabetes Mellitus Type 2 HEMATOLOGIC: Negative Blood Disorders OTHER HISTORY: Negative Autoimmune Disease, Human Immunodeficiency Virus (HIV), Chicken Pox, Measles, Mumps, Rubella (French Measles), Pertussis or Clostridium Difficile Family History FAMILY HISTORY: Negative Family Psychiatric Problems, Family Respiratory Disorders, Family Cardiac Disorders, Family Gastrointestinal Problems, Family Cancer or Family Surgery Surgical History SURGICAL: Negative Abdominal Surgery, Nephrectomy, Joint Replacement, Neurologic Surgery or Section Social History SMOKING STATUS: Never smoker SECOND HAND EXPOSURE: No SUBSTANCE USE: does not use ED Exam Narrative Physical exam: GENERAL APPEARANCE: alert and oriented x 4, nontoxic, well-developed, well-nourished, no acute distress VITALS: All vitals were reviewed and the pulse ox is 99% on room air, which is normal according to my interpretation. HEENT: Normocephalic, atraumatic; pupils equal, round, reactive to light; EOMI; mucous membranes pink, moist; oropharynx clear NECK: Supple LUNGS: CTABL; no wheezes, no rales, no rhonchi HEART: Regular rate, regular rhythm; normal S1, S2; no murmurs ABDOMEN: non distended; normal BS; soft, fundal height is 18 cm; minimally diffuse lower abdominal/pelvic tenderness, no guarding EXTREMITIES: atraumatic; no edema NEUROLOGIC: awake; alert and oriented x4; cranial nerves II-XII grossly intact; no focal sensory or motor deficits PSYCHIATRIC: appropriate mood and affect SKIN: warm, dry, normal color; no rashes Course Quality Measures none Orders Category Date Time Status US OB >= 14 weeks Fetus Stat Exams 07/31/25 17:57 Completed ABO/RH Type - Stat Lab 07/31/25 18:45 Completed Beta HCG,Quantitative Stat Lab 07/31/25 18:45 Completed CBC Stat Lab 07/31/25 18:45 Completed Comprehensive Metabolic Panel Stat Lab 07/31/25 18:45 Completed Urinalysis, C/S if Indicated Stat Lab 07/31/25 18:09 Completed Urine Culture Stat Lab 07/31/25 18:09 Received Acetaminophen Tab [Tylenol ES Tab] Med 07/31/25 21:03 Discontinued 1,000 mg PO X1 ONE Nitrofurantoin Macro [Macrobid] Med 07/31/25 21:07 Once 100 mg PO X1 ONE Vital Signs Vital signs: Vital Signs Temperature 98.4 F 07/31/25 17:45 Pulse Rate 73 07/31/25 17:45 Respiratory Rate 19 07/31/25 17:45 Blood Pressure 116/71 07/31/25 17:45 Pulse Oximetry (%) 99 07/31/25 17:45 Oxygen Delivery Method Room Air 07/31/25 17:45 Vaginal Bleeding MDM Narrative MDM Narrative: Scribe Attestation: 07/31/25 - Usha Vazquez am scribing for and in the presence of Dr. Todd. 24yo female with EGA 15 weeks gestation, currently sees OB presenting with 24 hours of mild pelvic cramping and spotting. No fever or chills. Please see PE findings. Lab markers demonstrated WBC 10.7, stable Hgb 12.4, normal Plt count. Chemistries show normal renal function and normal LFTs. UA with evidence of pyuria with rare bacteria and positive leukocyte esterase. Beta HCG 80445. US demonstrates viable IUP with cardiac activity of 155. Patient will be re-assured at this time. Patient will be treated with Tylenol for mild pelvic pain and referred for [facility] follow-up in 1 week. Dx: threatened AB, UTI Patient data External records reviewed:: [facility] previous records (Per chart review, patient was admitted here on 10/01/24 for obstruction of bile duct.) Clinical information provided by:: patient Social determinants that could affect healthcare access:: none Patient has the following chronic illnesses:: none How is presenting disease/condition affected by chronic disease/condition?: no chronic disease Evaluation data The following diagnostics were reviewed and interpreted by me:: lab results and radiology exam(s) Lab and/or radiology exams considered but not ordered:: none Interpretation Summary: [place] [facility] Report Signed Patient: ALISHA PANIAGUA Med. Record#: [id number] Birthdate: 2000 Age/Sex: 24 / F Location: [facility] Attending Dr: Ordering Physician: Marichuy Whittaker NP Date of Service: 07/31/25 Procedure(s): US OB >= 14 weeks Fetus Accession Number(s): [id number] cc: Castillo Carrasquillo MD; Chente Mercado MD; Marichuy Whittaker NP~ Examination: Complete OB ultrasound greater than 14 weeks Date and time of exam: July 31, 2025, 1818 hours INDICATIONS: Vaginal bleeding beginning 2 days ago. Findings: Viable intrauterine single fetus with single amniotic sac presentation breech Cardiac motion 150 bpm Placenta anterior grade 1 Umbilical cord insertion seen Amniotic fluid index adequate Cervix 3.8 cm Ovaries obscured by bowel gas. Composite estimated gestational age based on BPD, head circumference, abdominal circumference, femur length is 14 weeks 2 days Estimated weight 94 g. Survey of intracranial anatomy, spinal anatomy, abdominal anatomy, four-chamber heart performed with no abnormalities identified. Impression: Viable intrauterine gestation in breech presentation. Dictated By: Chente Mercado MD Signed By: <Electronically signed by Chente Mercado MD in OV> 07/31/25 3417 Medications / Prescriptions Medications or Prescriptions considered but not ordered:: none Medication administrations:: Medication Administration History Nitrofurantoin Macrocrystals (Nitrofurantoin Macro 100 Mg Capsule) 100 mg PO X1 ONE Stop: 07/31/25 21:08 Discontinued Medications Acetaminophen (Acetaminophen 500 Mg Tablet) 1,000 mg PO X1 ONE Stop: 07/31/25 21:04 none Consultations Consultation(s) initiated? (list below): No Diagnosis Vaginal Bleeding Differential Diagnosis: threatened , menometrorrhagia, incomplete and vaginal bleeding Most likely diagnosis given after review of the tests above:: see clinical impression below Admission Indicated Admission indicated?: not indicated Admission Request Was there a request for admission?: No Disposition Plan Disposition Plan: Discharge Discharge Attestation Discharge Attestation: The patient and all family members were given an opportunity to ask questions and understood the discharge instructions. Discharge instructions specifically effects, indications for sooner follow up or return to the emergency department, and the expected course of current diagnosis. Patient condition: Stable Discharge Plan Plan Patient Disposition: HOME (Self Care) Prescriptions/Referrals Prescriptions/Med Rec: New nitrofurantoin monohyd/m-cryst [Macrobid] 100 mg capsule 100 mg PO BID Qty: 14 0RF Rx Instructions: must administer with a meal/food No Action doxylamine-pyridoxine (vit B6) [Diclegis] 10-10 mg tablet,delayed release (DR/EC) 1 tab PO BID 30 Days Qty: 60 2RF doxylamine-pyridoxine (vit B6) [Diclegis] 10-10 mg tablet,delayed release (DR/EC) 1 tab PO BID 30 Days Qty: 60 2RF vit-iron fum-folic ac [ Vitamin with Minerals] 28 mg iron- 800 mcg tablet 1 tab PO QDAY Qty: 60 3RF vit-iron fum-folic ac [ Tablet] 28 mg iron- 800 mcg tablet 1 tab PO QDAY Patient Comments: take 1 tablet by mouth once daily Referrals: Castillo Carrasquillo MD [Primary Care Provider, Family Practice] - In 1 week Problem List Clinical Impression: , threatened, early , Urinary tract infection affecting Patient/Caregiver Discharge Instructions Discharge Activity: activity as tolerated Diet Instructions: Force fluids Education Materials: ED Possible Miscarriage ..., ED CYSTITIS Female Adult Additional Instructions: Force fluids/meds as directed. Follow-up with [facility] physician for consideration of repeat ultrasound and urine Alysis. Medication as directed. Return if worsening Print Language: Frisian Stand Alone Forms: Pooja Award Info., Patient Portal Info Letter
[2025-07-31] MEDS: NITROFURANTOIN MACRO 100 MG CAPSULE PO (21:12)
[2025-07-31] MEDS: ACETAMINOPHEN 500 MG TABLET 1000 MG PO (21:12)
[2025-07-31 21:18] VITALS: BP 118/85; PULSE 75; RESP 14; TEMP 37; O2SAT 99
== END 2025-07-31 21:18 | disposition home or self-care (01) ==
PROVIDERS: Nurse Practitioner Family; Emergency Provider Emergency Medicine; PCP Family Medicine
DX: O03.9 Complete or unspecified spontaneous abortion without complication (principal); O23.42 Unspecified infection of urinary tract in pregnancy, second trimester; O32.1XX0 Maternal care for breech presentation, not applicable or unspecified; Z3A.15 15 weeks gestation of pregnancy
CPT/HCPCS: 36415; 76805; 80053; 81001; 84702; 85025; 86900; 86901; 87077; 87086; 87186; 99283; A9270

== ENCOUNTER 2025-08-15 11:08 | Outpatient (AMB) | payer MEDICAID, SELFPAY ==
[2025-08-15 11:16] VITALS: BP 110/72; PULSE 78; RESP 18; TEMP 36.6; O2SAT 98; BMI 29.3
--- NOTE | 2025-08-15 11:16 | OBCLNT_ITS ---
Vital Signs 08/15/25 11:16 Height 1.65 m Height Method Stated Weight 79.946 kg Weight Measurement Method Standing Scale BMI 29.3 BP 110/72 Blood Pressure Source Automatic Cuff Blood Pressure Location Right Upper Arm Position Sitting Respiration 18 Pulse 78 Pulse Source Monitor Temp 97.8 F Temp Source Temporal Artery Scan Pulse Oximetry (%) 98 Oxygen Delivery Method Room Air Allergies/Home Meds Allergies & Medications Allergies No Known Allergies Allergy (Verified 08/15/25 11:17) Medication Reconciliation vitamin-ferrous fumarate 28 mg iron-folic acid 800 mcg tablet ( Tablet) 1 tab PO QDAY 07/03/21 [History Confirmed 08/15/25] doxylamine 10 mg-pyridoxine (vit B6) 10 mg tablet,delayed release (Diclegis) 1 tab PO BID 30 days #60 tabs 06/08/25 [Rx Confirmed 08/15/25] doxylamine 10 mg-pyridoxine (vit B6) 10 mg tablet,delayed release (Diclegis) 1 tab PO BID 30 days #60 tabs 06/08/25 [Rx Confirmed 08/15/25] vitamin-ferrous fumarate 28 mg iron-folic acid 800 mcg tablet ( Vitamins with Minerals) 1 tab PO QDAY #60 tabs 07/18/25 [Rx Confirmed 08/15/25] nitrofurantoin monohydrate/macrocrystals 100 mg capsule (Macrobid) 100 mg PO BID #14 caps 07/31/25 [Rx Confirmed 08/15/25] Immunizations Immunizations Flu Vaccine in the Last 12 Months: No Flu Vaccine Exclusion Criteria: Refused by Patient Care OB Visit Log OB Flowsheet Initial Weight: Not Recorded Date -?-?-?-?-?-?-?-?-?-?-?-?- EGA Weight BP Alb Glu CTX Pres Fundal ht FHR Mov Dilation Station Effacement Hx Notes Visit Note 06/08/25 -?-?-?-?-?-?-?-?-?-?-?-?- 7w 4d 81.817 kg 121/75 absent unknown 8 110 absent 24 yo for OBI. LMP is 04/16/2025. EDC January 21, 2025. Patient complains of nausea. She also complains of feeling tired and no energy. Denies SAB complaints. OB panel with A1c, schedule MFM for NT, discuss SAB precaution. comfort measure for N/V, Diclegesis as needed for nausea, refill PNV, rtc 4 week 07/18/25 -?-?-?-?-?-?-?-?-?-?-?-?- 13w 2d 80.059 kg 124/78 absent unknown 13 135 absent No SAB complaints. Denies nausea and vomiting. No bleeding NIPT and carrier screens today. Patient was scheduled for her anatomy scan in August. Discussed SAB precautions. aFP next visit. Return in 4 weeks 08/15/25 -?-?-?-?-?-?-?-?-?-?-?-?- 17w 2d 79.946 kg 110/72 absent unknown 17 135 absent NIPT results are pending. [facility] is down. Patient has anatomy scan scheduled for August. Light movement. Denies leaking, bleeding, contractions. denies bleeding Keep follow-up ultrasound with MFM in August. aFP today. Discussed SAB precautions. Return in 4 weeks OB to [facility] Calculator Estimated Delivery Date Method Current WG Current Estimate 01/21/26 LMP (Certain) 17w 2d Other Estimates 01/27/26 Ultrasound #1 16w 3d Notes Visit Date: 07/18/25 Last Updated by: Candy Foley CNM OB panel: UT-,HBSAG-,HIV-,HC-,RPR::NR, rub imm, GC/CT-, O+,ABS-, 12/39/279, + UTI, A1c: 5.3 Visit Date: 06/08/25 Last Updated by: Candy Foley CNM 24 yo . LMP: 04/16/25. EDC: 01/21/25 Office Procedures OBC Clinic LOC & Office Proc's Nursing/Assessment Patient Status: Established Patient OB Clinic Nursing Assessment: Medication Reconciliation, Update PMH in EMR and Vital Signs OB Clinic Coordination of Care: Complex Care and Chronic Disease 1-5, Education Complex Pt/Fam, Consent,records obtained, informed consent, Lab and Imaging orders, Results/Orders obtained and Staff clarify orders Special Needs: Heart tones Established Patient Charge Established Patient Point Assignment: 140 Established Patient Point Charge: EP Level 4 (120-155) Assessment & Plan Diagnosis / Problem List (1) Encounter for supervision of high risk in second trimester, antepartum: Status: Acute Plan Anatomy scan scheduled for August. aFP today. Discussed SAB precautions. [facility] is down so NIPT results are pending Additional Plan Follow Up: 4 Weeks (obc)
== END 2025-08-15 11:30 | disposition home or self-care (01) ==
LOC: HODSOBC 11:08
PROVIDERS: Supervising Provider Advanced Practice Midwife; Visit Provider Advanced Practice Midwife
DX: O09.92 Supervision of high risk pregnancy, unspecified, second trimester (principal); Z3A.17 17 weeks gestation of pregnancy; Z28.9 Immunization not carried out for unspecified reason
CPT/HCPCS: 99214; G0463

== ENCOUNTER 2025-09-19 11:03 | Outpatient (AMB) | payer MEDICAID, SELFPAY ==
[2025-09-19 11:15] VITALS: BP 102/65; PULSE 74; RESP 18; TEMP 36.6; O2SAT 97; BMI 29.7
--- NOTE | 2025-09-19 11:15 | OBCLNT_ITS ---
Vital Signs 09/19/25 11:15 Height 1.65 m Height Method Stated Weight 80.796 kg Weight Measurement Method Standing Scale BMI 29.7 BP 102/65 Blood Pressure Source Automatic Cuff Blood Pressure Location Right Upper Arm Position Sitting Respiration 18 Pulse 74 Pulse Source Monitor Temp 97.9 F Temp Source Temporal Artery Scan Pulse Oximetry (%) 97 Oxygen Delivery Method Room Air Allergies/Home Meds Allergies & Medications Allergies No Known Allergies Allergy (Verified 09/19/25 11:16) Medication Reconciliation vitamin-ferrous fumarate 28 mg iron-folic acid 800 mcg tablet ( Tablet) 1 tab PO QDAY 07/03/21 [History Confirmed 09/19/25] doxylamine 10 mg-pyridoxine (vit B6) 10 mg tablet,delayed release (Diclegis) 1 tab PO BID 30 days #60 tabs 06/08/25 [Rx Confirmed 09/19/25] doxylamine 10 mg-pyridoxine (vit B6) 10 mg tablet,delayed release (Diclegis) 1 tab PO BID 30 days #60 tabs 06/08/25 [Rx Confirmed 09/19/25] vitamin-ferrous fumarate 28 mg iron-folic acid 800 mcg tablet ( Vitamins with Minerals) 1 tab PO QDAY #60 tabs 07/18/25 [Rx Confirmed 09/19/25] nitrofurantoin monohydrate/macrocrystals 100 mg capsule (Macrobid) 100 mg PO BID #14 caps 07/31/25 [Rx Confirmed 09/19/25] Immunizations Immunizations Flu Vaccine in the Last 12 Months: No Flu Vaccine Exclusion Criteria: Refused by Patient Care OB Visit Log OB Flowsheet Initial Weight: Not Recorded Date -?-?-?-?-?-?-?-?-?-?-?-?- EGA Weight BP Alb Glu CTX Pres Fundal ht FHR Mov Dilation Station Effacement Hx Notes Visit Note 06/08/25 -?-?-?-?-?-?-?-?-?-?-?-?- 5w 6d 81.817 kg 121/75 absent unknown 8 110 absent 24 yo for OBI. LMP is 04/16/2025. EDC January 21, 2025. Patient complains of nausea. She also complains of feeling tired and no energy. Denies SAB complaints. OB panel with A1c, schedule MFM for NT, discuss SAB precaution. comfort measure for N/V, Diclegesis as needed for nausea, refill PNV, rtc 4 week 07/18/25 -?-?-?-?-?-?-?-?-?-?-?-?- 11w 4d 80.059 kg 124/78 absent unknown 13 135 absent No SAB complaints. Denies nausea and vomiting. No bleeding NIPT and carrier screens today. Patient was scheduled for her anatomy scan in August. Discussed SAB precautions. aFP next visit. Return in 4 weeks 08/15/25 -?-?-?-?-?-?-?-?-?-?-?-?- 15w 4d 79.946 kg 110/72 absent unknown 17 135 absent NIPT results are pending. [facility] is down. Patient has anatomy scan scheduled for August. Light movement. Denies leaking, bleeding, contractions. denies bleeding Keep follow-up ultrasound with MFM in August. aFP today. Discussed SAB precautions. Return in 4 weeks OB to 09/19/25 -?-?-?-?-?-?-?-?-?-?-?-?- 20w 4d 80.796 kg 102/65 absent unknown 20 145 absent 2 soft marker for T21, NIPT-, reports good movement. Denies leaking, bleeding, contractions patient has declined amniocentesis. echo ordered NT was 6.42 Follow-up ultrasound scheduled for October. Third trimester labs next visit. Corrected EDC is February 02, 2026 [facility] Calculator Estimated Delivery Date Method Current WG Current Estimate 02/02/26 Ultrasound #2 20w 4d Other Estimates 01/21/26 LMP (Certain) 22w 2d 01/27/26 Ultrasound #1 21w 3d 02/02/26 Manual 20w 4d final sabrina per M FM edc:02/02/26. EFW:76% Notes Visit Date: 09/19/25 Last Updated by: Candy Foley CNM NIPT/SMA and CF screen negative/girl. AFP not done Visit Date: 07/18/25 Last Updated by: Candy Foley CNM OB panel: UT-,HBSAG-,HIV-,HC-,RPR::NR, rub imm, GC/CT-, O+,ABS-, /279, + UTI, A1c: 5.3 Visit Date: 06/08/25 Last Updated by: Candy Foley CNM 24 yo . LMP: 04/16/25. EDC: 01/21/25 Office Procedures OBC Clinic LOC & Office Proc's Nursing/Assessment Patient Status: Established Patient OB Clinic Nursing Assessment: Medication Reconciliation, Update PMH in EMR and Vital Signs OB Clinic Coordination of Care: Complex Care and Chronic Disease 1-5, Education Complex Pt/Fam, Consent,records obtained, informed consent, Lab and Imaging orders, Results/Orders obtained and Staff clarify orders Special Needs: Heart tones Established Patient Charge Established Patient Point Assignment: 140 Established Patient Point Charge: EP Level 4 (120-155) Assessment & Plan Diagnosis / Problem List (1) Encounter for supervision of high risk in second trimester, antepartum: Status: Acute Plan Follow-up ultrasound and echo scheduled for 4 weeks. Reviewed ultrasound. Third trimester labs next visit. Discussed labor precautions. Return in 4 weeks OB to Additional Plan Follow Up: 4 Weeks (obc)
== END 2025-09-19 11:42 | disposition home or self-care (01) ==
LOC: HODSOBC 11:03
PROVIDERS: Supervising Provider Advanced Practice Midwife; Visit Provider Advanced Practice Midwife
DX: O09.92 Supervision of high risk pregnancy, unspecified, second trimester (principal); Z3A.20 20 weeks gestation of pregnancy; Z28.21 Immunization not carried out because of patient refusal
CPT/HCPCS: 99214; G0463